=== PATIENT | female | born 1960 | race Caucasian/White ===

== ENCOUNTER 2016-04-01 12:18 | Outpatient (CLI) | payer OTHER ==
[~2016-04-01] VITALS: Ht 170.2 cm; Wt 63.5 kg
--- OUTSIDE RECORDS SUMMARY | 2016-04-01 12:21 | XMS REPORT | Continuity of Care Document ---
Author Author [facility] Organization [facility] Address Unknown Phone Unavailable Care Team Providers Care Highway Administrative Engineer Name Role Phone RAKESHJOVANNY MAURICIO Ajit PCP Insurance Providers Payer Name Policy Number Subscriber Name Relationship Work Comp [id number] Jhony Garner 17 Self / Same As Patient Advance Directives Directive Response Recorded Date/Time Advance Directives No 02/16/16 9:28am Health Care Power of Concrete Pipe Maker No 02/16/16 9:28am Organ Donor No 02/16/16 9:28am Resuscitation Status Full Code 02/16/16 9:28am Problems No problem information available. Medications No medication information available. Social History Social History Problem Response Recorded Date/Time Recent Foreign Travel No 02/16/2016 9:28am Recent Infectious Disease Exposure No 02/16/2016 9:28am Hospital Discharge Instructions No hospital discharge instructions. Plan of Care Discharge Date 02/16/16 10:03am Instructions/Education Provided DR. MCKOY-POST EPIDURAL INST Prescriptions See Medication Section Functional Status No functional status results. Allergies, Adverse Reactions, Alerts No allergy information available. Immunizations No immunization records. Vital Signs Acute Vital Signs Vital Response Date/Time Temperature (Fahrenheit) 98.7 degrees F (97.6 - 99.5) 02/16/2016 9:30am Temperature (Calculated Celsius) 37.69044 degrees C (36.4 - 37.5) 02/16/2016 9:30am Temperature Source Tympanic 02/16/2016 9:30am Pulse Rate (adult) 78 bpm (60 - 90) 02/16/2016 10:01am Respiratory Rate 20 bpm (12 - 24) 02/16/2016 10:01am O2 Sat by Pulse Oximetry 98 % (88 - 100) 02/16/2016 10:01am Blood Pressure 128/77 mm Hg 02/16/2016 10:01am Blood Pressure Mean 85 mm Hg 02/16/2016 9:30am Pain Numeric Pain Scale 5-Moderate Pain 02/16/2016 10:01am Height (Feet) 5 feet 02/16/2016 9:30am Height (Inches) 7.00 inches 02/16/2016 9:30am Height (Calculated Centimeters) 170.619539 cm 02/16/2016 9:30am Weight (Pounds) 140 pounds 02/16/2016 9:30am Weight (Ounces) 0.0 oz 02/16/2016 9:30am Weight (Calculated Grams) 74404.93 gm 02/16/2016 9:30am Weight (Calculated Kilograms) 63.223505 kilograms 02/16/2016 9:30am Calculated BMI 21.9 02/16/2016 9:30am Results No known relevant diagnostic tests, laboratory data and/or discharge summary. Procedures No known history of procedures. Encounters Encounter Location Arrival/Admit Date Discharge/Depart Date Attending Provider Departed Clinic [facility] 02/16/16 9:12am 02/16/16 10: 03am BOB MCKOY MD
[2016-04-01] MEDS ORDERED: TRIAMCINOLONE ACET (KENALOG-40) 40 MG/ML 1 ML VIAL ONE (12:26)
[2016-04-01] MEDS ORDERED: BUPIVACAINE 0.25% 30 ML (SENSORCAINE) VIAL ONE (12:26)
[2016-04-01 12:30] VITALS: BP 129/68
[2016-04-01 12:57] VITALS: BP 114/58
--- NOTE | 2016-04-01 14:19 | Pain Medicine-Procedure ---
Procedure Pre-Op/Post-Op Diagnosis Diagnosis: disc disorder with radiculopathy, lumbar Indications for Operation Low back pain Attending Surgeon Laurel Procedure Date of Service: Apr 01, 2016 Procedure: Lumbar Epidural Steroid Injection at the L4-L5 level under Fluoroscopic Guidance Procedure: Patient was identified in the holding area. After risks, benefits, and alternatives were discussed with the patient, informed consent was obtained. Patient was brought to the fluoroscopy suite and placed prone on the procedure room table. A time out was performed. Vital signs were monitored throughout the procedure. The patients low back was prepped and draped in the usual sterile fashion. The patients skin was anesthetized using 2% Lidocaine. A Tuohy needle was inserted and advanced to the L4-L5 epidural space under fluoroscopic guidance using the loss of resistance technique and intermittent projection of fluoroscopy. There was no paresthesia with needle placement. The needle position was confirmed in both the AP and lateral view. After negative aspiration 2ml of contrast was injected under live fluoroscopy which showed good spread of the contrast in the epidural space at the appropriate level, there was no intravascular or subarachnoid spread. Again, after negative aspiration for heme or CSF, 2 ml of 0.25% Bupivicaine, 2ml of preservative free normal saline, and 80mg of Kenalog was injected. The needle was removed and a sterile bandage was placed and the patient was transferred to the recovery area in stable condition. After a brief period of observation, patient was discharged to home with no new neurological deficits and no apparent complications. Complications None BOB MCKOY MD Apr 01, 2016 2:19 pm
== END 2016-04-01 13:00 | disposition home or self-care (01) ==
LOC: CARD 12:18
PROVIDERS: ATTEND Pain Medicine Pain Medicine
DX: M51.16 Intervertebral disc disorders with radiculopathy, lumbar region (principal); Z79.899 Other long term (current) drug therapy
CPT/HCPCS: 62323

== ENCOUNTER 2016-11-01 16:16 | Outpatient (RCR) | payer OTHER | END 2016-11-23 | disposition home or self-care (01) | DX: Z47.89 Encounter for other orthopedic aftercare (principal); M54.16 Radiculopathy, lumbar region ==

== ENCOUNTER → 2016-12-04 | Outpatient (CLI) | payer BC ==
--- NOTE | 2016-12-04 17:24 | Diagnostic Imaging Report ---
INDICATION: Trauma to the fifth toe. Persistent pain. COMPARISON: None. FINDINGS: Three radiographic views of the right foot were obtained. There is chronic appearing fusion of the fifth middle and distal phalanges. There is a subtle curvilinear lucency through this bone, best visualized on the oblique view. Findings could be on the basis of hairline fracture. Otherwise, remaining osseous structures are intact. Joint spaces are maintained. No unexpected radiopaque foreign bodies are seen. IMPRESSION: 1. Potential hairline fracture of the right fifth toe as described above. Followup in 14 days could be performed to assess for interval healing. Dictated by: Dictated on workstation # [id number]
== END ==
LOC: RAD 14:30
PROVIDERS: ATTEND Family Medicine
DX: S99.921A Unspecified injury of right foot, initial encounter (principal); X58.XXXA Exposure to other specified factors, initial encounter; Y99.8 Other external cause status
CPT/HCPCS: 73630

== ENCOUNTER → 2019-12-17 | Outpatient (CLI) | payer BC ==
--- NOTE | 2019-12-17 09:45 | Diagnostic Imaging Report ---
INDICATION: Pain and edema to the right arm, post cholecystectomy TECHNIQUE: Color and grayscale sonographic images with duplex Doppler evaluation of the upper extremity venous system. CORRELATION STUDY: None FINDINGS: There is no intraluminal filling defect within the visualized portion of the internal jugular, subclavian, axillary, brachial and/or basilic veins to suggest thrombus formation. Where applicable, these vessels demonstrate normal response to compression and augmentation. There is noted thrombus within the right cephalic vein. This is a reported area of prior IV site. IMPRESSION: 1. Findings are positive for thrombus within the right cephalic vein. Findings were telephoned by the [facility] at time of imaging. Dictated by: Dictated on workstation # [id number]
== END ==
LOC: RAD 08:41
PROVIDERS: ATTEND Nurse Practitioner Family
DX: I82.611 Acute embolism and thrombosis of superficial veins of right upper extremity (principal)